=== PATIENT | female | born 1965 | race Caucasian/White ===

== ENCOUNTER 2017-11-10 23:56 | Inpatient (IN) | payer OTHER ==
[~2017-11-10] VITALS: Ht 162.5 cm; Wt 126.7 kg
--- NOTE | ~2017-11-10 | EKG ---
[place], [place] ELECTROCARDIOGRAM REPORT NAME: NATA MEZA UNIT #: [id number] ROOM: 528 DOCTOR: AGUSTINA DRAFT REPORT BIRTHDATE: [address] [facility] Test Date: 2017-11-11 Test Time: 00:00:25 Pat Name: NATA MEZA Department: Room: 528 Gender: F Rn Maternity: : 1965 Requested By: VASYL CALI Order Number: [id number] Reading MD: Rebecca Hearn MD Measurements Intervals [place] Rate: 94 P: 62 CO: 199 QRS: 29 QRSD: 113 T: 28 QT: 340 QTc: 426 Interpretive Statements Sinus rhythm Borderline prolonged CO interval Incomplete right bundle branch block Low voltage, precordial leads Nonspecific T abnormalities,possble ischemia in lateral leads Baseline wander in lead(s) I,II,III,aVR,aVL,aVF Electronically Signed On 11-12-2017 14:00:08 PDT by Rebecca Hearn MD CM:EKGRPT:ELECTROCARDIOGRAM REPORT 0000 1400 VASYL MASON DRAFT REPORT VASYL CALI DO
[2017-11-10 23:57] VITALS: BP 138/83
[2017-11-11] VITALS (11 sets, daily range): BP systolic 111–148; BP diastolic 60–94
[2017-11-11 00:22] LABS: BASO % 0.5 % (0.0-1.0); EOS # 0.1 10*3/uL (0.0-0.4); EOS % 1.5 % (1.0-4.0); HEMATOCRIT 34.2 % (37.0-47.0); HEMOGLOBIN 10.1 g/dl (12.0-16.0); LYMPH # 1.6 10*3/uL (1.3-4.4); LYMPH % 19.8 % (27.0-41.0); MEAN CELL VOLUME 77.7 fl (81.0-99.0); MEAN CORPUSCULAR HGB CONC 29.5 g/dl (33.0-37.0); MEAN PLATELET VOLUME 10.5 fl (9.6-12.3); MONO # 0.6 10*3/uL (0.1-1.0); NEUT # 5.5 10*3/uL (2.3-7.9); NEUT % 68.7 % (47.0-73.0); PLATELET COUNT AUTOMATED 248 10*3/uL (130-400); RED CELL DISTRI WIDTH 17.4 % (0-14.5)
[2017-11-11 00:39] LABS: ALBUMIN 3.2 gm/dl (3.1-4.5); ALKALINE PHOSPHATASE 91 U/L (45-117); BUN 13 mg/dl (7-24); CHLORIDE 108 mmol/L (98-107); CREATININE 0.72 mg/dL (0.55-1.02); POTASSIUM 3.1 mmol/L (3.5-5.1); SGOT/AST 8 IU/L (3-35); SGPT/ALT 18 U/L (12-78); SODIUM 140 mmol/L (136-145); TOTAL PROTEIN 7.2 gm/dL (6.4-8.2); TROPONIN I 0.015 ng/ml (<0.045)
[2017-11-11 00:43] LABS: BILIRUBIN NEGATIVE (NEGATIVE); BLOOD 1+ (NEGATIVE); CLARITY CLEAR (CLEAR); COLOR YELLOW (YELLOW); GLUCOSE NEGATIVE (NEGATIVE); KETONE NEGATIVE (NEGATIVE); LEUKO ESTERASE NEGATIVE (NEGATIVE); NITRITE NEGATIVE (NEGATIVE); PH 5.5 (5.0-9.0); SPECIFIC GRAVITY <= 1.005 (1.005-1.030); UROBILINOGEN 0.2 E.U./dl (0.2-1.0)
[2017-11-11 00:52] LABS: BACTERIA TRACE; WBC 0-2 wbc/hpf (0-5)
[2017-11-11 00:54] LABS: URINE AMPHETAMINES < 1000 (1000ng/ml); URINE BARBITURATES < 200 (200ng/ml); URINE BENZODIAZEPINES < 200 (200ng/ml); URINE CANNABINOIDS (THC) < 50 (50ng/ml); URINE COCAINE < 300 (300ng/ml); URINE METHADONE < 300 (300ng/ml); URINE OPIATES < 300 (300ng/ml)
[2017-11-11 00:55] LABS: URINE PHENCYCLIDINE < 25 (25ng/ml)
[2017-11-11 06:00] LABS: IRON 24 ug/dL (50-170); TOTAL IRON BINDING CAPACITY 404 ug/dl (250-450)
[2017-11-11 06:03] LABS: TROPONIN I < 0.015 ng/ml (<0.045)
[2017-11-11] MEDS ORDERED: LANSOPRAZOLE30 MG PO (06:05)
[2017-11-12] VITALS: BP 141/88
[2017-11-12 06:02] LABS: BASO % 0.5 % (0.0-1.0); EOS # 0.1 10*3/uL (0.0-0.4); EOS % 1.5 % (1.0-4.0); HEMATOCRIT 33.6 % (37.0-47.0); LYMPH # 1.8 10*3/uL (1.3-4.4); LYMPH % 26.5 % (27.0-41.0); MEAN CELL VOLUME 76.4 fl (81.0-99.0); MEAN CORPUSCULAR HGB 22.7 pg (27.0-31.0); MEAN CORPUSCULAR HGB CONC 29.8 g/dl (33.0-37.0); MEAN PLATELET VOLUME 10.4 fl (9.6-12.3); MONO # 0.7 10*3/uL (0.1-1.0); MONO % 9.8 % (3.0-9.0); NEUT # 4.1 10*3/uL (2.3-7.9); NEUT % 61.4 % (47.0-73.0); PLATELET COUNT AUTOMATED 271 10*3/uL (130-400); RED CELL DISTRI WIDTH 17.5 % (0-14.5); WHITE BLOOD COUNT 6.6 10*3/uL (4.8-10.8)
[2017-11-12 06:27] LABS: BUN 8 mg/dl (7-24); CHLORIDE 106 mmol/L (98-107); CHOLESTEROL 156 mg/dL (<200); CREATININE 0.64 mg/dL (0.55-1.02); HDL CHOLESTEROL 48 mg/dl (40-60); LDL CHOLESTEROL 90 mg/dL (9-159); PHOSPHOROUS 2.9 mg/dL (2.5-4.9); POTASSIUM 3.6 mmol/L (3.5-5.1); SODIUM 140 mmol/L (136-145); TRIGLYCERIDES 89 mg/dl (<150); VLDL CHOLESTEROL 18 mg/dL (6-40)
[2017-11-12 08:00] VITALS: BP 146/76
[2017-11-12 08:41] LABS: VITAMIN D, 25-HYDROXY 27.3 ng/mL (30-100)
[2017-11-12 12:00] VITALS: BP 150/82
[2017-11-12] MEDS ORDERED: ATORVASTATIN CA40 M1 PO (15:36)
[2017-11-12] MEDS ORDERED: ASPIRIN ADULT L81 M2 PO (15:36)
== END 2017-11-12 16:06 | disposition home or self-care (01) | DRG 71 ==
LOC: ED 23:56 → EDHOLD 11-11 05:04 → 5E 11-11 05:04 → 4E 11-11 05:21 → 5E 11-11 05:36
PROVIDERS: Emergency Medicine; Student in an Organized Health Care Education/Training Program
DX: G93.41 Metabolic encephalopathy (principal); E87.2 Acidosis; D50.9 Iron deficiency anemia, unspecified; R55 Syncope and collapse; E87.6 Hypokalemia; E87.8 Other disorders of electrolyte and fluid balance, not elsewhere classified; R73.9 Hyperglycemia, unspecified; E83.51 Hypocalcemia; F10.920 Alcohol use, unspecified with intoxication, uncomplicated; R31.21 Asymptomatic microscopic hematuria; E04.1 Nontoxic single thyroid nodule; E86.0 Dehydration; G93.89 Other specified disorders of brain; K21.9 Gastro-esophageal reflux disease without esophagitis; I10 Essential (primary) hypertension; M21.371 Foot drop, right foot; D72.810 Lymphocytopenia; E66.9 Obesity, unspecified; Z90.49 Acquired absence of other specified parts of digestive tract; Z68.42 Body mass index [BMI] 45.0-49.9, adult; I69.351 Hemiplegia and hemiparesis following cerebral infarction affecting right dominant side; Z80.0 Family history of malignant neoplasm of digestive organs